=== PATIENT | male | born 1940 | race Caucasian/White ===

== ENCOUNTER 2017-01-31 09:22 | Emergency (ER) | payer OTHER ==
[2017-01-31 07:05] LABS: BASOPHILS 1.3 %; BASOPHILS ABSOLUTE 0.11 10/3/uL (0.0-0.16); EOSINOPHILS 11.8 %; EOSINOPHILS ABSOLUTE 0.98 10/3/uL (0.0-0.53); ER CBC TAT 0 Hrs 07 Mins; HEMATOCRIT 46.1 % (40.0-51.0); HEMOGLOBIN 15.9 g/dL (13.6-17.8); IMMATURE GRANULOCYTES 0.2 %; IMMATURE GRANULOCYTES ABSOLUTE 0.02 10/3/uL (0.0-0.11); LYMPHOCYTES 30.2 %; LYMPHOCYTES ABSOLUTE 2.51 10/3/uL (0.67-4.30); MANUAL DIFF NO %; MEAN CORPUS HGB CONC 34.5 g/dL (32.0-36.0); MEAN CORPUSCULAR HEMOGLOB 32.2 pg (26.0-34.0); MEAN CORPUSCULAR VOLUME 93.3 fL (80-100); MEAN PLATELET VOLUME 9.1 fL (9.2-13.0); MONOCYTES 8.1 %; MONOCYTES ABSOLUTE 0.67 10/3/uL (0.21-1.20); NEUTROPHILS 48.4 %; NEUTROPHILS ABSOLUTE 4.02 10/3/uL (2.02-8.40); PLATELET COUNT 277 10/3/uL (150-400); RBC DISTRIBUTION WIDTH 13.7 % (12.0-16.0); RED CELL COUNT 4.94 10/6/uL (4.7-6.1); WHITE BLOOD CELLS 8.3 10/3/uL (4.5-10.5)
[2017-01-31 07:11] LABS: PARTIAL THROMBO TIME 35.7 SEC (22.5-37.2); PROTIME (NOT ORD) 13.4 SEC (12.0-14.5)
[2017-01-31 07:21] LABS: BUN (BLOOD UREA NITROGEN) 10 MG/DL (6-23); CALCIUM, SERUM 8.7 MG/DL (8.5-10.4); CHEST PAIN PROFILE TAT 0 Hrs 23 Mins; CHLORIDE, SERUM 105 MMOL/L (96-112); CO2 (CARBON DIOXIDE) 31 MMOL/L (24-34); CREATININE 1.24 MG/DL (0.70-1.30); GFR AFRICAN AMERICAN 66 ML/MIN (>=60); GFR NON AFRICAN AMERICAN 57 ML/MIN (>=60); GLUCOSE, SERUM 123 MG/DL (60-99); POTASSIUM, SERUM 4.1 MMOL/L (3.5-5.3); SODIUM, SERUM 140 MMOL/L (135-148); TROPONIN I <0.02 NG/ML (<0.05)
[~2017-01-31 09:22] MED LIST: ADVAIR250 INH; BACDS PO; CORTISPORIN TC OT; IBU400 PO; LEVAQUIN5T PO; LIBRAX PO; METROGEL1 % TOP; P10 PO; VENTOLIN HFA INH
[2017-04-03] MEDS ORDERED: [UNRECOGNIZED DRUG - OTHER] TOP (12:43)
[2017-04-03] MEDS ORDERED: ASAB PO (12:44)
[2017-04-03] MEDS ORDERED: LIPITOR10 PO (12:45)
[2017-04-03] MEDS ORDERED: BACTRIM DS1 TAB PO (12:45)
[2017-04-03] MEDS ORDERED: CIMETIDINE400 MG PO (12:46)
[2017-04-03] MEDS ORDERED: SINGULAIR1 PO (12:46)
[2017-04-03] MEDS ORDERED: LEVAQUIN5T PO (12:46)
[2017-04-03] MEDS ORDERED: STIOLTO RESPIMAT4 GM INH (12:47)
[2017-04-03] MEDS ORDERED: FLOMAX4 PO (12:47)
[2017-04-04] MEDS ORDERED: VENTOLIN HFA INH (09:22)
[2017-04-04] MEDS ORDERED: IPRA17AE INH (09:22)
[2017-04-04] MEDS ORDERED: [UNRECOGNIZED DRUG - MIXTURE] (09:23)
[2017-04-04] MEDS ORDERED: P1 PO (09:24)
== END 2017-01-31 10:00 | disposition home or self-care (01) ==
LOC: ER 09:22
PROVIDERS: Emergency Medicine
DX: J44.1 Chronic obstructive pulmonary disease with (acute) exacerbation (principal); Z87.891 Personal history of nicotine dependence; Z88.1 Allergy status to other antibiotic agents; Z91.018 Allergy to other foods; Z79.52 Long term (current) use of systemic steroids; Z79.899 Other long term (current) drug therapy
CPT/HCPCS: 71010; 80048; 83735; 83880; 84484; 85025; 85610; 85730; 93005; 94640; 96374; 99285; J2930